=== PATIENT | female | born 1955 | race Caucasian/White ===

== ENCOUNTER 2018-10-28 02:03 | Inpatient (IN) | payer MEDICAID ==
[~2018-10-28] VITALS: Ht 162.6 cm; Wt 67.3 kg
[2018-10-28] MEDS ORDERED: normal saline 1000ML IV soln IV ONE (02:20)
[2018-10-28] MEDS ORDERED: azithromycin/NS 500mg/250ml 250 ML IV ONE (02:25)
[2018-10-28] MEDS ORDERED: CefTRIAXone 2gm/D5W 50ml 50 ML IV ONE (02:25)
[2018-10-28] MEDS ORDERED: METF500T PO (02:43)
[2018-10-28] MEDS ORDERED: PIOG15TA8 PO (02:44)
[2018-10-28] MEDS ORDERED: GLYB5TAB7 PO (02:44)
[2018-10-28] MEDS ORDERED: CHOL10002 PO (02:45)
[2018-10-28] MEDS ORDERED: ALBU18HF2 INH (02:46)
[2018-10-28] MEDS ORDERED: FLUT100D2 INH (02:46)
[2018-10-28 02:55] LABS: BASOPHILS # (AUTO) 0.1 X10'3 (0-0.2); BASOPHILS % (AUTO) 0.3 % (0-1); EOSINOPHILS % (AUTO) 0.1 % (0-6); HEMATOCRIT 38.7 % (35.0-45.0); HEMOGLOBIN 13.1 g/dl (12.0-16.0); LYMPHOCYTES # (AUTO) 0.6 X10'3 (1.1-4.8); LYMPHOCYTES % (AUTO) 2.4 % (21-51); MEAN CORPUSCULAR HEMOGLOBIN 31.5 PG (27.0-31.0); MEAN CORPUSCULAR HGB CONC 33.8 g/dL (33.0-36.5); MEAN PLATELET VOLUME 8.9 FL (7.4-10.4); MONOCYTES # (AUTO) 0.3 X10'3 (0-0.9); MONOCYTES % (AUTO) 1.2 % (2-12); NEUTROPHILS # (AUTO) 24.6 X10'3 (1.8-7.7); PLATELET COUNT 239 X10'3 (140-440); RED BLOOD COUNT 4.16 X10'6 (4.20-5.60); RED CELL DISTRIBUTION WIDTH 12.2 % (11.5-14.5)
--- NOTE | 2018-10-28 02:55 | NUR ---
PT GIVEN WARM BLANKETS AND CALL LIGHT TO CALL WHEN ABLE TO URINATE.
[2018-10-28 03:04] LABS: ALANINE AMINOTRANSFERASE 17 U/L (12-78); ALBUMIN 2.6 G/DL (3.4-5.0); ALBUMIN/GLOBULIN RATIO 0.6 (1.1-1.5); ALKALINE PHOSPHATASE 130 IU/L (46-116); ANION GAP 13 (8-16); ASPARTATE AMINO TRANSFERASE 17 U/L (10-37); BILIRUBIN,TOTAL 0.8 MG/DL (0.1-1.0); BLOOD UREA NITROGEN 9 MG/DL (7-18); BUN/CREATININE RATIO 13.2 (6.6-38.0); CALCIUM 8.7 MG/DL (8.5-10.1); CHLORIDE 88 MMOL/L (99-107); CREATININE 0.68 MG/DL (0.40-0.90); GLUCOSE 449 MG/DL (70-104); POTASSIUM 3.2 MMOL/L (3.5-5.1); SODIUM 125 MMOL/L (135-145); TOTAL CARBON DIOXIDE 24.4 MMOL/L (24-32); TOTAL PROTEIN 6.7 G/DL (6.4-8.2); eGFR 88 ML/MIN
[2018-10-28 03:05] LABS: PARTIAL THROMBOPLASTIN TIME 32 SECONDS (22-32)
[2018-10-28 03:10] LABS: MAGNESIUM 1.3 MG/DL (1.5-2.4)
[2018-10-28 03:21] LABS: WHITE BLOOD COUNT 25.6 X10'3 (4.5-11.0)
[2018-10-28 03:29] LABS: PLATELET ESTIMATE NORMAL; TOTAL CELLS COUNTED 100
[2018-10-28 03:30] LABS: TOXIC GRANULATION 1+; TOXIC VACUOLATION FEW
[2018-10-28 03:39] LABS: CLARITY,URINE SLIGHTLY CLOUDY (Clear); COLOR,URINE YELLOW (Yellow); GLUCOSE, URINE >=1000 mg/dl (Neg); KETONES,URINE 40 mg/dl (Neg); LEUKOCYTE ESTERASE ,URINE NEGATIVE (Neg); NITRITES, URINE POSITIVE (Neg); OCCULT BLOOD,URINE MODERATE (Neg); PROTEIN,URINE 30 mg/dl (Neg)
[2018-10-28] MEDS ORDERED: potassium Cl 20 mEq SR tablet PO STA (03:43)
[2018-10-28 03:45] LABS: UA COLLECTION TYPE VOIDED
[2018-10-28] MEDS ORDERED: insulin regular, human 10 units/0.1 ml syringe SQ ONE (03:45)
[2018-10-28] MEDS ORDERED: VANCOMYCIN IV ONE (03:50)
[2018-10-28] MEDS ORDERED: [UNRECOGNIZED DRUG - OTHER] IV ONE (03:50)
--- NOTE | 2018-10-28 03:50 | NUR ---
DR ARANAFS NOTIFIED OF FLUID BOLUS COMPLETION.
[2018-10-28 03:58] LABS: BACTERIA,URINE 4+ /HPF (Neg); RBC,URINE 0-2 /HPF (0-2); SQUAMOUS EPITHELIAL CELL,UR MODERATE /LPF (FEW); WBC,URINE 0-4 /HPF (0-4)
--- NOTE | 2018-10-28 04:33 | NUR ---
OS SAT AT 88% ON RA, PLACED ON 2LNC.
[2018-10-28] MEDS ORDERED: magnesium hydroxide 30ml (MOM) UD suspension PO PRN (05:05)
[2018-10-28] MEDS ORDERED: acetaminophen 325mg tablet PO PRN (05:05)
[2018-10-28] MEDS ORDERED: ondansetron/PF 4mg/2ml inj IV PRN (05:05)
[2018-10-28] MEDS ORDERED: mag hydrox/Alum hydrox/simeth 30ml oral suspension PO PRN (05:05)
[2018-10-28] MEDS ORDERED: MESSAGE TO PHARMACY PO ONE (05:10)
[2018-10-28] MEDS ORDERED: dextrose ORAL solution 15 GM/59 ML bottle PO PRN ×2 (05:10)
[2018-10-28] MEDS ORDERED: glucagon, human recombinant 1mg kit SUBCUT PRN (05:10)
[2018-10-28] MEDS ORDERED: dextrose 50%-water 50ml dispensing syringe IV PRN ×2 (05:10)
[2018-10-28 05:28] LABS: HEMOGLOBIN A1C 8.8 % (4.5-6.2)
--- NOTE | 2018-10-28 06:28 | NUR ---
ASSUMED CARE OF PATIENT, SHE IS CURRENTLY SLEEPING ON HER RIGHT SIDE IN THE GURNEY, VITALS STABLE.
[2018-10-28] MEDS: budesonide 0.5mg/2ml UD nebule IH SCH ×2 (08:00→22:48)
[2018-10-28] MEDS ORDERED: FLUTICASONE PROPIONATE INH SCH (08:00)
[2018-10-28] MEDS: normal saline 1000ml 1,000 ML IV SCH ×2 (08:35→15:02)
[2018-10-28] MEDS: vancomycin/NS 1 GM ADD-VANTAGE 250 ML IV SCH ×2 (08:35→19:33)
[2018-10-28] MEDS ORDERED: magnesium Cl slow-release 64mg tablet PO PRN (09:50)
[2018-10-28] MEDS ORDERED: potassium Cl 40MEQ/NS 500ml 500 ML IV PRN ×2 (09:50)
[2018-10-28] MEDS ORDERED: piperacillin/tazo 3.375gm/50ml 50 ML IV SCH (09:50)
[2018-10-28] MEDS ORDERED: potassium Cl 20 mEq SR tablet PO PRN (09:50)
[2018-10-28] MEDS ORDERED: magnesium 4gm in 100ml NS 100 ML IV PRN (09:50)
--- NOTE | 2018-10-28 11:18 | NUR ---
PT 20 GAUGE IV INFULTRATED, REMOVED IV AND PLACED COBAN OVER, PT STATES SHE HAD MOVED IN BED AND MAY HAVE DISLODGED HER IV, THEIR IS MINIMAL SWELLING AND REDNESS, DR SUAREZ INFORMED, NO ORDER RECEIVED AT THIS TIME, PT HAD ANOTHER IV ON LEFT WRIST, FLUSHED WITH NS AND IV IS WORKING, CHANGED VANCO TO THAT ARM AND INSTRUCTED PT TO PRESS CALL LIGHT IF THERE IS ANY BURNING, PAIN OR CONCERNS.
--- NOTE | 2018-10-28 11:46 | NUR ---
CALLED REPORT TO MONIQUE GRACE, SHE STATEDSHARMIN HAS NO QUESTIONS ABOUT THE PATIENT AND HAS REVIEWED THE PATIENTS CHART. PATIENT WILL GO UP VIA WHEELCHAIR.
[2018-10-28] MEDS: insulin Lispro (HumaLOG) vial - multi-dose SQ SCH ×3 (13:37→19:03)
[2018-10-28] MEDS: albuterol 2.5 MG/3 ML nebule NEB SCH (13:57)
[2018-10-28] MEDS ORDERED: vancomycin/NS 1 GM ADD-VANTAGE 250 ML IV SCH ×2 (17:00)
[2018-10-28 19:00] VITALS: BP 139/93
--- NOTE | 2018-10-28 19:00 | NUR ---
Patient in room [facility]. I have received report from MONIQUE GRACE and had the opportunity to ask questions and assume patient care.
[2018-10-28] MEDS: piperacillin/tazo 3.375gm/50ml 50 ML IV SCH (20:17)
[2018-10-28] MEDS: insulin glargine (Lantus) pen - multi-dose SQ SCH (21:03)
[2018-10-29] VITALS: BP 104/55
[2018-10-29] MEDS ORDERED: CefTRIAXone/D5W-Rocephin 1gm 50 ML IV SCH (02:00)
[2018-10-29] MEDS: azithromycin 250mg tablet PO SCH (03:14)
[2018-10-29] MEDS: normal saline 1000ml 1,000 ML IV SCH ×3 (03:47→21:02)
[2018-10-29] MEDS: piperacillin/tazo 3.375gm/50ml 50 ML IV SCH ×3 (03:47→21:24)
[2018-10-29 05:37] LABS: BASOPHILS # (AUTO) 0.1 X10'3 (0-0.2); BASOPHILS % (AUTO) 0.5 % (0-1); EOSINOPHILS % (AUTO) 0.2 % (0-6); HEMATOCRIT 33.2 % (35.0-45.0); HEMOGLOBIN 11.2 g/dl (12.0-16.0); LYMPHOCYTES # (AUTO) 1.3 X10'3 (1.1-4.8); MEAN CORPUSCULAR HEMOGLOBIN 31.7 PG (27.0-31.0); MEAN CORPUSCULAR HGB CONC 33.7 g/dL (33.0-36.5); MEAN PLATELET VOLUME 8.8 FL (7.4-10.4); MONOCYTES # (AUTO) 0.5 X10'3 (0-0.9); MONOCYTES % (AUTO) 2.3 % (2-12); PLATELET COUNT 214 X10'3 (140-440); RED BLOOD COUNT 3.53 X10'6 (4.20-5.60); RED CELL DISTRIBUTION WIDTH 12.5 % (11.5-14.5); WHITE BLOOD COUNT 21.9 X10'3 (4.5-11.0)
[2018-10-29 05:49] LABS: ALANINE AMINOTRANSFERASE 20 U/L (12-78); ALBUMIN/GLOBULIN RATIO 0.5 (1.1-1.5); ALKALINE PHOSPHATASE 127 IU/L (46-116); ANION GAP 8 (8-16); ASPARTATE AMINO TRANSFERASE 24 U/L (10-37); BILIRUBIN,TOTAL 0.5 MG/DL (0.1-1.0); BLOOD UREA NITROGEN 11 MG/DL (7-18); BUN/CREATININE RATIO 19.3 (6.6-38.0); CALCIUM 8.3 MG/DL (8.5-10.1); CHLORIDE 99 MMOL/L (99-107); CREATININE 0.57 MG/DL (0.40-0.90); GLUCOSE 224 MG/DL (70-104); MAGNESIUM 1.8 MG/DL (1.5-2.4); POTASSIUM 3.2 MMOL/L (3.5-5.1); SODIUM 134 MMOL/L (135-145); TOTAL CARBON DIOXIDE 27.2 MMOL/L (24-32); TOTAL PROTEIN 5.7 G/DL (6.4-8.2); eGFR > 90 ML/MIN
--- NOTE | 2018-10-29 06:25 | NUR ---
Patient in room [facility]. I have received report from SANJAY Schafer and had the opportunity to ask questions and assume patient care.
--- NOTE | 2018-10-29 06:33 | NUR ---
Problems reprioritized. Patient report given, questions answered & plan of care reviewed with CLAUDETTE RN.
[2018-10-29 07:00] VITALS: BP 119/62
[2018-10-29] MEDS: potassium Cl 20 mEq SR tablet PO PRN ×3 (08:43→16:24)
[2018-10-29] MEDS: albuterol 2.5 MG/3 ML nebule NEB SCH (09:11)
[2018-10-29] MEDS: budesonide 0.5mg/2ml UD nebule IH SCH ×2 (09:12→19:25)
[2018-10-29] MEDS: insulin Lispro (HumaLOG) vial - multi-dose SQ SCH ×3 (09:18→19:24)
[2018-10-29] MEDS: vancomycin/NS 1 GM ADD-VANTAGE 250 ML IV SCH ×2 (09:19→20:53)
[2018-10-29 11:00] VITALS: BP 106/61
[2018-10-29] MEDS: acetaminophen 325mg tablet PO PRN (12:20)
[2018-10-29 13:26] LABS: URINE AMPHETAMINE SCREEN NEGATIVE (Neg); URINE BARBITUATE SCREEN NEGATIVE (Neg); URINE BENZODIAZEPINES SCREEN NEGATIVE (Neg); URINE CANNABINOID SCREEN POSITIVE (Neg); URINE COCAINE SCREEN NEGATIVE (Neg); URINE METHADONE SCREEN NEGATIVE (Neg); URINE OPIATE SCREEN NEGATIVE (Neg); URINE PHENCYCLIDINE SCREEN NEGATIVE (Neg)
--- NOTE | 2018-10-29 14:51 | NUR ---
DM consult: Pt with A1c 8.8 seen at bedside. Pt states her BG levels are generally lower than 180 and she takes her DM meds per rx. Pt states she monitors her CHO intake and exercises to also manage BG levels. Pt with no questions at this time. Written DM ed with referral to outpatient DM ed and RD contact information given to pt. Pt admit for probable PNA and started on broad-spectrum abx her H&P. Pt currently on CHO controlled diet with documented PO intake 100% meeting nutrient needs. Pt denies any food allergies however states some difficulty chewing d/t missing teeth, pt agreeable to soft to chew foods, d/w dietary. LBM 10/29. No edema or wounds. Will continue to follow. Recommendations: 1) Continue with CHO controlled diet 2) Soft to chew food TID 3) Wt per rx Addendum: 10/29/18 at [address] Amended: Links added.
[2018-10-29] MEDS ORDERED: enoxaparin 30mg/0.3ml syringe SUBCUT ONE (16:30)
[2018-10-29 18:00] VITALS: BP 107/59
--- NOTE | 2018-10-29 18:15 | NUR ---
Problems reprioritized. Patient report given, questions answered & plan of care reviewed with SANJAY Patrick.
--- NOTE | 2018-10-29 18:30 | NUR ---
Patient in room [facility]. I have received report from Anna GRACE and had the opportunity to ask questions and assume patient care. Patient sitting up on edge of bed eating dinner. In no distress, respirations even and unlabored.
[2018-10-29] MEDS ORDERED: VANCOMYCIN LEVEL IV NR (19:30)
[2018-10-29] MEDS: insulin glargine (Lantus) pen - multi-dose SQ SCH (21:00)
[2018-10-30] VITALS: BP 121/54
[2018-10-30] MEDS: azithromycin 250mg tablet PO SCH (03:45)
[2018-10-30] MEDS: piperacillin/tazo 3.375gm/50ml 50 ML IV SCH ×3 (04:49→19:37)
--- NOTE | 2018-10-30 06:20 | NUR ---
Patient in room [facility]. I have received report from SANJAY Patrick and had the opportunity to ask questions and assume patient care.
--- NOTE | 2018-10-30 06:32 | NUR ---
Problems reprioritized. Patient report given, questions answered & plan of care reviewed with Anna RN.
[2018-10-30 06:53] LABS: BASOPHILS # (AUTO) 0.2 X10'3 (0-0.2); BASOPHILS % (AUTO) 1.1 % (0-1); EOSINOPHILS % (AUTO) 0.2 % (0-6); HEMATOCRIT 36.3 % (35.0-45.0); HEMOGLOBIN 12.2 g/dl (12.0-16.0); LYMPHOCYTES # (AUTO) 1.6 X10'3 (1.1-4.8); LYMPHOCYTES % (AUTO) 9.8 % (21-51); MEAN CORPUSCULAR HEMOGLOBIN 31.7 PG (27.0-31.0); MEAN CORPUSCULAR HGB CONC 33.6 g/dL (33.0-36.5); MEAN CORPUSCULAR VOLUME 94.3 FL (78-98); MEAN PLATELET VOLUME 9.3 FL (7.4-10.4); MONOCYTES % (AUTO) 5.7 % (2-12); NEUTROPHILS % (AUTO) 83.2 % (42-75); PLATELET COUNT 295 X10'3 (140-440); RED BLOOD COUNT 3.85 X10'6 (4.20-5.60); WHITE BLOOD COUNT 16.8 X10'3 (4.5-11.0)
[2018-10-30 06:56] LABS: ALANINE AMINOTRANSFERASE 35 U/L (12-78); ALBUMIN 2.1 G/DL (3.4-5.0); ALBUMIN/GLOBULIN RATIO 0.5 (1.1-1.5); ALKALINE PHOSPHATASE 175 IU/L (46-116); ANION GAP 9 (8-16); ASPARTATE AMINO TRANSFERASE 40 U/L (10-37); BILIRUBIN,TOTAL 0.5 MG/DL (0.1-1.0); BLOOD UREA NITROGEN 9 MG/DL (7-18); BUN/CREATININE RATIO 14.8 (6.6-38.0); CALCIUM 8.7 MG/DL (8.5-10.1); CHLORIDE 99 MMOL/L (99-107); CREATININE 0.61 MG/DL (0.40-0.90); GLUCOSE 191 MG/DL (70-104); MAGNESIUM 1.8 MG/DL (1.5-2.4); PHOSPHORUS 2.7 MG/DL (2.3-4.5); POTASSIUM 3.3 MMOL/L (3.5-5.1); SODIUM 137 MMOL/L (135-145); TOTAL CARBON DIOXIDE 28.9 MMOL/L (24-32); TOTAL PROTEIN 6.3 G/DL (6.4-8.2); eGFR > 90 ML/MIN
[2018-10-30] MEDS: normal saline 1000ml 1,000 ML IV SCH ×2 (06:56→17:02)
[2018-10-30] MEDS: potassium Cl 20 mEq SR tablet PO PRN ×3 (07:15→16:07)
[2018-10-30] MEDS: enoxaparin 40mg/0.4ml syringe SUBCUT SCH (07:15)
[2018-10-30 07:30] VITALS: BP 129/61
[2018-10-30 08:15] LABS: PLATELET ESTIMATE NORMAL; TOTAL CELLS COUNTED 100
[2018-10-30] MEDS: insulin Lispro (HumaLOG) vial - multi-dose SQ SCH ×3 (09:08→19:01)
[2018-10-30] MEDS: albuterol 2.5 MG/3 ML nebule NEB SCH (10:10)
[2018-10-30] MEDS: budesonide 0.5mg/2ml UD nebule IH SCH ×2 (10:11→19:25)
[2018-10-30 11:00] VITALS: BP 116/51
[2018-10-30 18:00] VITALS: BP 118/51
--- NOTE | 2018-10-30 18:05 | NUR ---
Problems reprioritized. Patient report given, questions answered & plan of care reviewed with SANJAY Patrick.
--- NOTE | 2018-10-30 18:30 | NUR ---
Patient in room [facility]. I have received report from Anna GRACE and had the opportunity to ask questions and assume patient care.
[2018-10-30] MEDS: lactobacillus rhamnosus 10,000 MMU CELLS/CAPSULE PO SCH (21:11)
[2018-10-30] MEDS: insulin glargine (Lantus) pen - multi-dose SQ SCH (21:19)
[2018-10-31] VITALS: BP 137/56
[2018-10-31] MEDS: normal saline 1000ml 1,000 ML IV SCH (01:39)
[2018-10-31] MEDS: piperacillin/tazo 3.375gm/50ml 50 ML IV SCH (03:52)
[2018-10-31] MEDS: azithromycin 250mg tablet PO SCH (03:52)
[2018-10-31 05:40] LABS: ALANINE AMINOTRANSFERASE 29 U/L (12-78); ALBUMIN 1.9 G/DL (3.4-5.0); ALBUMIN/GLOBULIN RATIO 0.5 (1.1-1.5); ALKALINE PHOSPHATASE 150 IU/L (46-116); ANION GAP 9 (8-16); ASPARTATE AMINO TRANSFERASE 26 U/L (10-37); BILIRUBIN,TOTAL 0.5 MG/DL (0.1-1.0); BLOOD UREA NITROGEN 6 MG/DL (7-18); BUN/CREATININE RATIO 10.7 (6.6-38.0); CALCIUM 8.5 MG/DL (8.5-10.1); CHLORIDE 103 MMOL/L (99-107); CREATININE 0.56 MG/DL (0.40-0.90); GLUCOSE 137 MG/DL (70-104); MAGNESIUM 1.7 MG/DL (1.5-2.4); PHOSPHORUS 3.9 MG/DL (2.3-4.5); POTASSIUM 3.4 MMOL/L (3.5-5.1); SODIUM 140 MMOL/L (135-145); TOTAL PROTEIN 5.7 G/DL (6.4-8.2); eGFR > 90 ML/MIN
[2018-10-31 06:12] LABS: BASOPHILS % (AUTO) 0.3 % (0-1); EOSINOPHILS # (AUTO) 0.1 X10'3 (0-0.9); EOSINOPHILS % (AUTO) 0.8 % (0-6); HEMATOCRIT 33.4 % (35.0-45.0); HEMOGLOBIN 11.5 g/dl (12.0-16.0); LYMPHOCYTES # (AUTO) 1.7 X10'3 (1.1-4.8); LYMPHOCYTES % (AUTO) 14.4 % (21-51); MEAN CORPUSCULAR HEMOGLOBIN 32.1 PG (27.0-31.0); MEAN CORPUSCULAR HGB CONC 34.3 g/dL (33.0-36.5); MEAN CORPUSCULAR VOLUME 93.7 FL (78-98); MEAN PLATELET VOLUME 8.3 FL (7.4-10.4); MONOCYTES # (AUTO) 0.7 X10'3 (0-0.9); MONOCYTES % (AUTO) 5.8 % (2-12); NEUTROPHILS # (AUTO) 9.4 X10'3 (1.8-7.7); NEUTROPHILS % (AUTO) 78.7 % (42-75); PLATELET COUNT 360 X10'3 (140-440); RED BLOOD COUNT 3.57 X10'6 (4.20-5.60); RED CELL DISTRIBUTION WIDTH 13.4 % (11.5-14.5); WHITE BLOOD COUNT 11.9 X10'3 (4.5-11.0)
--- NOTE | 2018-10-31 06:20 | NUR ---
Patient in room [facility]. I have received report from SANJAY Patrick and had the opportunity to ask questions and assume patient care.
[2018-10-31 06:30] VITALS: BP 137/74
--- NOTE | 2018-10-31 06:33 | NUR ---
Problems reprioritized. Patient report given, questions answered & plan of care reviewed with Anna RN.
[2018-10-31] MEDS: lactobacillus rhamnosus 10,000 MMU CELLS/CAPSULE PO SCH (07:24)
[2018-10-31] MEDS: enoxaparin 40mg/0.4ml syringe SUBCUT SCH (07:25)
[2018-10-31] MEDS: potassium Cl 20 mEq SR tablet PO PRN (07:29)
[2018-10-31] MEDS: acetaminophen 325mg tablet PO PRN (07:32)
[2018-10-31 07:52] LABS: NUCLEATED RED BLOOD CELLS 3 /100WBC (0-0); TOTAL CELLS COUNTED 100
[2018-10-31 07:54] LABS: LARGE PLATELETS FEW; PLATELET ESTIMATE NORMAL
[2018-10-31] MEDS: insulin Lispro (HumaLOG) vial - multi-dose SQ SCH (09:08)
[2018-10-31] MEDS ORDERED: LACT1CAP26 PO (10:33)
[2018-10-31] MEDS ORDERED: LINE600T36 PO (10:33)
[2018-10-31] MEDS ORDERED: VANCOMYCIN LEVEL IV NR (19:30)
== END 2018-10-31 12:24 | disposition home or self-care (01) | DRG 720 ==
LOC: ER 02:05 → ED HOLD 05:02 → SUR 3N 12:01
PROVIDERS: ADMIT Internal Medicine; ATTEND Family Medicine
DX: A41.9 Sepsis, unspecified organism (principal); J18.1 Lobar pneumonia, unspecified organism; R65.20 Severe sepsis without septic shock; E11.65 Type 2 diabetes mellitus with hyperglycemia; J44.0 Chronic obstructive pulmonary disease with (acute) lower respiratory infection; J44.1 Chronic obstructive pulmonary disease with (acute) exacerbation; E87.6 Hypokalemia; N39.0 Urinary tract infection, site not specified; F12.10 Cannabis abuse, uncomplicated; F17.210 Nicotine dependence, cigarettes, uncomplicated; Z85.820 Personal history of malignant melanoma of skin; Z91.14 Patient's other noncompliance with medication regimen; Z71.6 Tobacco abuse counseling
CPT/HCPCS: 36415; 71045; 71250; 80053; 80202; 80305; 81001; 82948; 83036; 83605; 83735; 83880; 84100; 84145; 85025; 85610; 85730; 87040; 87070; 87077; 87088; 87186; 87502; 87503; 93005; 93306; 94640; 94760; 96365; 96367; 96368; 96372; 99285; G0378; J0456; J0696; J1650; J1815; J2543; J3370; J7030; J7626